=== PATIENT | female | born 1935 | race Caucasian/White ===

== ENCOUNTER 2016-12-26 16:03 | Inpatient (IN) ==
--- NOTE | 2016-12-26 16:28 | Emergency Department Report ---
Fall HPI - General Chief Complaint: Fall Stated Complaint: Fall/Head Inury Time Seen by Provider: 12/26/16 16:18 Source: patient, family (daughter Sophia) Mode of arrival: ambulatory Limitations: no limitations - History of Present Illness HPI Narrative: Chuyita is an 81 year old female who went to the [facility] today to be seen for fall injury with left hip/pelvis pain. She was advised to go to the ER as they do not have xray capabilities. Reports falling picking weeds at her home on 12/24 landing on her left side and slightly striking her head causing a small abrasion to the left side. Having difficulty getting around at home with her cane so has progressed to using an old walker she had on hand. Additionally reports recent loss of with his passing occurring 12/22 around midnight. This has caused her to delay coming in for medical evaluation. Chronically take Morphine and oxycodone prn for chronic back/neck pain. Does not take any blood thinners, denies warfarin, plavix, aspirin or similar. Denies neck pain from fall. Indicates asymptomatic prior to fall, just lost her balance as she was leaning over irregularly and took a tumble. PCP Sailaja. Onset (ago): day(s) (2) Fall from: standing Place fall occurred: home Loss of consciousness: none Prolonged down time: no Symptoms prior to fall: none Context: tripped/slipped Location of injury: pelvis Quality: sharp Associated symptoms (after fall): denies - Related Data Home Medications Medication Instructions Recorded Confirmed Morphine Sulfate [Morphine Sulfate 60 mg PO BID #0 tab 01/02/14 12/26/16 ER] Nitroglycerin [Nitrostat] 0.4 mg SL Q5MIN3 PRN #0 tab 01/02/14 12/26/16 Acetaminophen [Acetaminophen Extra 500 mg PO Q4H PRN 12/26/16 12/26/16 Strength] Oxycodone HCl [Oxycontin] 20 mg PO DAILY PRN 12/26/16 12/26/16 Allergies Allergy/AdvReac Type Severity Reaction Status Date / Time ibuprofen Allergy Verified 12/26/16 16:34 naproxen [From Aleve] Allergy Verified 12/26/16 16:34 Review of Systems All systems: reviewed and negative except as stated Constitutional: Denies: fever Cardiovascular: Denies: chest pain Respiratory: Denies: cough, dyspnea Gastrointestinal: Denies: abdominal pain, nausea, vomiting Musculoskeletal: Reports: other (left groin/hip pain). Denies: back pain Neurological: Reports: confusion (forgetful). Denies: headache, numbness Psychiatric: Reports: other (recent loss of spouse ) [facility] Patient Stated Medical History Hearing Loss Yes: Hearing Aids Osteoarthritis Yes - Social History Smoking status: Never smoker Substance use type: does not use Alcohol intake frequency: does not drink Housing: house Household members: none Current occupational status: retired Current residence: Apartment/Private Home Physical Exam - Limitations Limitations: no limitations - General General appearance: alert, in no apparent distress - Expanded Head Exam Head exam physical: Present: other (healing 1.5 cm laceration left parietal scalp) - Eye Eye exam: Present: normal appearance, PERRL, EOMI. Absent: scleral icterus, conjunctival injection - ENT ENT exam: Present: normal exam, normal oropharynx, mucous membranes moist - Neck Neck exam: Present: normal inspection, full ROM, trachea midline. Absent: tenderness - Chest Chest inspection: Present: normal inspection, symmetric chest wall rise. Absent : tenderness - Respiratory Respiratory exam: Present: normal lung sounds bilaterally - Cardiovascular Cardiovascular exam: Present: regular rate, normal rhythm - Abdominal Exam Abdominal exam: Present: soft. Absent: distention, tenderness - Extremities Exam Extremities exam: Present: normal inspection, tenderness (left groin/pelvis into left hip area tender), normal capillary refill - Skin Skin exam: Present: warm, dry, intact - Neurological Exam Neurological exam: Present: alert, oriented X3, other (forgetful) - Psychiatric Psychiatric exam: Present: normal affect, normal mood Course - Consultations Consultation #1: Jolie Time: 17:26 (admit) Consultation #2: lucho Time: 17:00 (admit to hosp and consult ortho) Vital Signs Temperature 98.1 F 12/26/16 16:05 Pulse Rate 93 12/26/16 16:05 Respiratory Rate 18 12/26/16 16:05 Blood Pressure 138/68 12/26/16 16:05 Pulse Oximetry 97 12/26/16 16:05 Temperature 98.1 F 12/26/16 16:05 Pulse Rate 93 12/26/16 16:05 Respiratory Rate 18 12/26/16 16:05 Blood Pressure 138/68 12/26/16 16:05 Pulse Oximetry 97 12/26/16 16:05 Fall - Radiology Data Attestation: I reviewed the patient's radiology results. impacted left subcapital neck fx CT head neg acute findings Critical Care Time Critical Care Time: No Disposition Clinical Impression: Fracture of hip, left, closed [place]: [place] [facility] [place] Condition: Stable Prescriptions: No Action Nitroglycerin [Nitrostat] 0.4 mg SL Q5MIN3 PRN #0 tab PRN Reason: Chest Pain Oxycodone HCl [Oxycontin] 20 mg PO DAILY PRN PRN Reason: Pain Acetaminophen [Acetaminophen Extra Strength] 500 mg PO Q4H PRN PRN Reason: Pain Morphine Sulfate [Morphine Sulfate ER] 60 mg PO BID #0 tab Referrals: Jareth Menard MD [Family Provider] - Time of Disposition: 17:32 - Seen By: midlevel
--- NOTE | 2016-12-26 17:10 | CT Scan Report ---
Indication: fall, head injury PROCEDURE: CT head/brain wo con: Encounter: Initial Comparison: None Technique: Axial CT images through the head were performed without contrast. Iterative Reconstruction dose reducing technique was utilized. FINDINGS: The ventricles are of normal size, shape, and configuration for the patient's age. There is no evidence of acute intracranial hemorrhage, midline displacement, or mass effect. There are scattered areas of low attenuation in the white matter which most likely represent changes of chronic microvascular ischemia. The CT attenuation of the brain parenchyma is otherwise normal within the cerebellum, brain stem, and cerebral hemispheres. The tympanic cavities and mastoid air cells are free of appreciable disease. There are no definite fractures of the skull base, calvarium, or visualized portion of the midface. IMPRESSION: No CT evidence of acute traumatic intracranial injury. .
--- NOTE | 2016-12-26 17:12 | XRay Report ---
Indication: fall, left hip/pelvis pain PROCEDURE: XR pelvis w/ 2 view LT hip: Encounter: Initial Comparison: None Findings: Mildly impacted fracture of the subcapital left femoral neck. Right total hip replacement. Spinal fusion hardware. Mild bony demineralization. No additional acute fracture or dislocation seen. Impression: Closed posttraumatic subcapital left femoral neck fracture. .
[2016-12-26] MEDS ORDERED: ACETAMINOPHEN 500 MG TABLET PO PRN (17:46)
[2016-12-26] MEDS ORDERED: ONDANSETRON 4 MG/2 ML INJECTION IVP PRN (17:47)
--- NOTE | 2016-12-26 17:52 | History & Physical Report ---
<Estrella Oneil V - Last Filed: 12/26/16 18:04> History of Present Illness Date: 12/26/16 Chief complaint: fall with left hip fracture HPI: Chuyita is a very pleasant 81-year-old female who unfortunately fell at her home on Thursday12/24/16. She reports that she was outside in the yard weeding and lost her balance, tripping, falling, landing on the left side. She did suffer a small abrasion to the left side of her head, however, was able to get herself up without any difficulties. She has been ambulating on her left leg for the past 2 days. Today she noted continued pain that felt more severe in nature in the left hip. This prompted her to present for further medical evaluation. She initially presented to [facility], however, was directed to [facility] emergency room for further evaluation. A CT scan of the head was obtained showing no intracranial abnormality. X-ray of the left hip did reveal a posttraumatic left femoral neck fracture. Given these findings the hospitalist services were contacted for medical evaluation at admission along with consultation placed to Dr. Adams for further orthopedic treatment. Chuyita is seen on initial examination while in the emergency room. She is alert , oriented and pleasant. Accompanied by her daughter. Unfortunately, she lost her earlier this week on 12/22/16 and is planning his for January 05. We did review her advanced directives and she does indicate she is a do not resuscitate. Review of Systems All systems: reviewed and no additional remarkable complaints except as stated - Gastrointestinal Gastrointestinal: Present: constipation (chronic) - Musculoskeletal Musculoskeletal: Present: as per HPI, back pain (chronic), neck pain (chronic) Musculoskeletal Comments: left hip pain [facility] Patient Stated Medical History Chronic cervical degenerative disc disease with stenosis Chronic lumbar sacral degenerative disc disease, postlaminectomy. Osteoporosis Chronic pain syndrome Diverticulosis. Overactive bladder with incontinence Chronic constipation Hearing Loss Osteoarthritis Surgical History: Right total hip arthroplasty-Dr Barrera (miguelangel) 01/18/15. Caudal - 08/2014. Lumbar laminectomy and fusion- 2001 ([place]) Dr Chauhan. Repeat L3- S1 fusion-12/2004 ([place]) Dr Hall. C3-C3 laminectomy -2003 ([place]) Dr Hall. Appendectomy Family History: Father-heart disease. Sister and maternal aunt with breast cancer Sister with Alzheimer's - Social History Smoking status: Never smoker Substance use type: does not use Alcohol intake frequency: does not drink Housing: house Current residence: Apartment/Private Home Social history: PCP Dr Menard Medications Home Medications Medication Instructions Recorded Confirmed Type Morphine Sulfate [Morphine Sulfate 60 mg PO BID #0 tab 01/02/14 12/26/16 History ER] Nitroglycerin [Nitrostat] 0.4 mg SL Q5MIN3 PRN #0 tab 01/02/14 12/26/16 History Acetaminophen [Acetaminophen Extra 500 mg PO Q4H PRN 12/26/16 12/26/16 History Strength] Oxycodone HCl [Oxycontin] 20 mg PO DAILY PRN 12/26/16 12/26/16 History Allergies Allergy/AdvReac Type Severity Reaction Status Date / Time ibuprofen Allergy Verified 12/26/16 16:34 naproxen [From Aleve] Allergy Verified 12/26/16 16:34 Exam Vital Signs: Temperature 98.1 F 12/26/16 16:05 Pulse Rate 93 12/26/16 16:05 Respiratory Rate 18 12/26/16 16:05 Blood Pressure 138/68 12/26/16 16:05 Pulse Oximetry 97 12/26/16 16:05 Oxygen Delivery Method Room Air Height: 1.47 m Weight: 45.2 kg - Constitutional Present: no acute distress - Routine HEENT Exam Head: Present: normocephalic Eye: Present: EOMI, PERRL ENT: Present: mucous membranes moist Comments: small abrasion to right lateral head - Routine Neck Exam Present: supple, full ROM - Routine Respiratory Exam Present: CTA bilaterally - Routine Cardiovascular Exam Present: RRR, S1, S2, no murmur - Routine Abdominal Exam Present: soft, normoactive bowel sounds - Routine Extremities Exam Comments: Left lateral hip tenderness - Routine Back/Spine/Pelvis Exam Back/Spine: Present: full ROM - Routine Skin Exam Present: intact, dry, warm - Routine Neurological Exam Present: alert, oriented X3, CN II-XII intact, moving all extremities - Routine Psychiatric Exam Present: normal affect, normal thought process Assessment and Plan (1) Fracture of hip, left, closed Current visit: Yes Status: Acute (2) Fall Current visit: Yes Status: Acute DVT Prophylaxis: SCD's Resuscitation Status: Do Not Resuscitate Assessment and Plan: Admit patient to inpatient status under the care of Dr. Mesa for fall with left hip fracture. Routine medical screening will be obtained including laboratory studies, CBC, BMP, urinalysis, INR. Will obtain EKG and chest x-ray. Did review all home medications. Did have discussion with patient. She is concerned about her chronic pain medication and acute withdrawal. If these are decreased. She routinely takes extended-release morphine 60 milligrams twice a day. She occasionally requires oxycodone 10 mg 1 during the day for breakthrough pain. May require further IV pain medications for control post- operatively Consultation will be placed to Dr. Adams for further orthopedic evaluation and treatment. Patient may have regular diet at this time. However, will make her nothing by mouth at midnight. Place Barton catheter to dependent drainage SCDs applied lower extremity for DVT prophylaxis In patient does wish to be a do not resuscitate and this orders written. Will discuss further orders and plan of care with attending, Dr. Dave At time of discharge medical care will return to primary care provider, Dr. Menard Hospital Course Summary Disclaimer: The visit summary below is not to be considered part of the above Progress Note. Hospital Course: 12/26/16 admission Admit patient to inpatient status under the care of Dr. Mesa for fall with left hip fracture. Routine medical screening will be obtained including laboratory studies, CBC, BMP, urinalysis, INR. Will obtain EKG and chest x-ray. Did review all home medications. Did have discussion with patient. She is concerned about her chronic pain medication and acute withdrawal. If these are decreased. She routinely takes extended-release morphine 60 milligrams twice a day. She occasionally requires oxycodone 10 mg 1 during the day for breakthrough pain. May require further IV pain medications for control post- operatively Consultation will be placed to Dr. Adams for further orthopedic evaluation and treatment. Patient may have regular diet at this time. However, will make her nothing by mouth at midnight. Place Barton catheter to dependent drainage SCDs applied lower extremity for DVT prophylaxis In patient does wish to be a do not resuscitate and this orders written. Will discuss further orders and plan of care with attending, Dr. Dave At time of discharge medical care will return to primary care provider, Dr. Menard <Loan Dave - Last Filed: 12/26/16 20:54> History of Present Illness Date: 12/26/16 [facility] Patient Stated Medical History Cerebrovascular Accident No Paralysis No Seizures No Syncope No Hearing Loss Yes: Hearing Aids Angina No Cardiac Arrhythmia No Congestive Heart Failure No Coronary Artery Disease No Heart Murmur No Hypertension No Myocardial Infarction No Valvular Heart Disease No Asthma No Bronchitis No Chronic Obstructive Pulmonary No Disease (COPD) Pneumonia No Pulmonary Edema No Pulmonary Embolism No Sleep Apnea No Tuberculosis No Other Respiratory No Diabetes Mellitus Type 1 No Diabetes Mellitus Type 2 No Osteoarthritis Yes Anesthesia Reactions No Blood Transfusions No Chemotherapy No Malignant Hyperthermia No Other No Depression No Now No Exam Vital Signs: Temperature 98.6 F 12/26/16 18:30 Pulse Rate 81 12/26/16 18:30 Respiratory Rate 16 12/26/16 18:30 Blood Pressure 133/77 12/26/16 18:30 Pulse Oximetry 93 12/26/16 18:30 Oxygen Delivery Method Room Air Height: 1.47 m Weight: 47.7 kg Results - Labs CBC & Chem 7: 12/26/16 18:37 12/26/16 18:37 Assessment and Plan (1) Fracture of hip, left, closed Problem details: Left IT fracture Current visit: Yes Status: Acute (2) Fall Current visit: Yes Status: Acute Assessment and Plan: Left intertrochanteric fracture, impacted Osteoporosis DJD/DDD Chronic pain syndrome Chronic constipation I have independently evaluated and examined this patient. I reviewed the chart, the patient's history, and the JEWELRY SETTER's documented findings as above. We discussed and formulated the assessment and plan as above with additions as below: History as described with patient sustaining a fall 2 days ago but able to get up and ambulate on her left leg. She also struck her head resulting in a small bump and bleeding but no neurological deficits. Patient denies history of coronary artery disease or stroke and has had no chest pain or focal neurological deficits in the recent past. She describes some occasional tingling in her fingertips or hands which is relieved by changing hand position or shaking her hands and is consistent with known cervical degenerative disc disease. She's had no recent respiratory infections or dyspnea. Blood pressure stable, afebrile Alert, fully oriented. Localized area of soft tissue swelling on the posterior parietal region. Neurological exam nonfocal. Left leg slightly shortened relative to the right but sensation intact and the patient is able to dorsiflex and plantarflex the left ankle without difficulty. Cardiac exam regular with normal S1 and S2. Breath sounds clear with good airflow. Portable chest x-ray reviewed by myself demonstrating no acute cardiopulmonary disease; cervical fusion incidentally noted. CT head reviewed by myself revealing no acute intracranial pathology although there is some chronic microvascular ischemic change present. Twelve-lead EKG reviewed-no acute ST-T wave changes. Laboratory data unremarkable. Patient stable for surgical stabilization of hip fracture-anticipated in a.m. IV/oral narcotics available for acute/chronic pain. Bowel regimen initiated. Records reviewed, discussed with ER provider, multiple x-rays reviewed as noted above, laboratory data reviewed. DO NOT RESUSCITATE order previously discussed by Estrella-order written. Hospital Course Summary Disclaimer: The visit summary below is not to be considered part of the above Progress Note.
--- NOTE | 2016-12-26 18:28 | Anesthesia Preoperative Report ---
Anesthesia Preoperative Record - Date and Time Date: 12/26/16 Preoperative Diagnosis: Hip Fx Proposed Procedure: Cannulated Screws Left Hip NPO Since Date: 12/26/16 NPO Since Time: 23:00 Allergies/Adverse Reactions: Allergies Allergy/AdvReac Type Severity Reaction Status Date / Time ibuprofen Allergy Verified 12/26/16 16:34 naproxen [From Aleve] Allergy Verified 12/26/16 16:34 - Vital Signs Vital Signs: Temperature 98.1 F 12/26/16 18:09 Pulse Rate 76 12/26/16 18:09 Respiratory Rate 18 12/26/16 18:09 Blood Pressure 127/60 12/26/16 18:09 Pulse Oximetry 97 12/26/16 18:09 - Medications Inpatient Medications: Current Medications Acetaminophen (Tylenol) 500 mg PO Q4H PRN PRN Reason: Pain Morphine Sulfate (Ms Contin) 60 mg PO BID BLANCA Ondansetron HCl (Zofran) 4 mg IVP Q6H PRN PRN Reason: Nausea &/or vomiting Oxycodone HCl (Oxycontin) 20 mg PO DAILY PRN Sodium Chloride (Iv Flush) 10 - 80 ml IVF PRN PRN PRN Reason: Flushing Home Medications: Home Medications Medication Instructions Recorded Confirmed Type Morphine Sulfate [Morphine Sulfate 60 mg PO BID #0 tab 01/02/14 12/26/16 History ER] Nitroglycerin [Nitrostat] 0.4 mg SL Q5MIN3 PRN #0 tab 01/02/14 12/26/16 History Acetaminophen [Acetaminophen Extra 500 mg PO Q4H PRN 12/26/16 12/26/16 History Strength] Oxycodone HCl [Oxycontin] 20 mg PO DAILY PRN 12/26/16 12/26/16 History Is Patient on Beta Sonali?: No - Medical History Respiratory: DENIES: Asthma, Bronchitis, Chronic Obstructive Pulmonary Disease (COPD), Dyspnea, Orthopnea, Pulmonary Embolism, Pneumonia, Upper Respiratory Infection, Pulmonary Edema, Sleep Apnea, Tuberculosis, Other Cardiovascular: DENIES: Angina, Arrhythmia, Congestive Heart Failure, Coronary Artery Disease , Heart Murmur, Hypertension, Myocardial Infarction, Valvular Heart Disease Neuro/Musculoskeletal: Reports: Back Problems Denies: Cerebrovascular Accident, Depression, Headaches, Loss of Consciousness, Muscle Weakness, Neuromuscular Disorder, Paralysis, Paresthesia, Syncope, Seizures Renal/Endocrine: DENIES: Diabetes Mellitus Type 1, Diabetes Mellitus Type 2, Thyroid Disease Other History: DENIES: Anesthesia Reactions, Now, Blood Transfusions, Chemotherapy , Cancer, Hemophilia, Malignant Hyperthermia, Sickle Cell Disease, Other - Surgical History Musculoskeletal Surgery/Tx: Reports: Total Hip Replacement (R) Anesthesia Reactions: None Hx Family Anesthesia Reaction: No History of Motion Sickness: No - Social History Smoking Status: Never smoker Substance Use Type: does not use Alcohol Intake Frequency: does not drink - Pertinent Findings EKG Rhythm: Normal Sinus Rhythm - Physical Exam Respiratory Exam: Present: lungs clear, bilateral breath sounds equal Cardiovascular Exam: Present: regular rate and rhythm, no murmur - Airway Assessment Mallampati Score: II TMD: 3 Fingerbreadths Neck Extension: poor (hx of cervical fusion) Overall Assessment: may be difficult intubation - ASA ASA Score: 2 - Plan Anesthesia: General TIVA - Discussion Discussion: Discussed risks/options/alternatives of anesthesia and questions answered. Patient consents. Nursing pain assessment noted. Present for Discussion: family member Attestation Statement: Prior to the delivery of any anesthetic medication, I examined the patient, developed the plan, obtained the patient's consent and discussed the risk and benefits of the procedure with the patient/guardian. - Additional Information Seen by Anesthesia: Yes
[2016-12-26 18:59] VITALS: BMI 21.9
[2016-12-26] MEDS ORDERED: NITROGLYCERIN 0.4 MG SUBLINGUAL TABLET SL PRN (19:06)
[2016-12-26] MEDS: NS 1,000 ML IV SCH (21:49)
[2016-12-27] MEDS: SENNA + DOCUSATE TABLET PO SCH ×3 (01:08→21:20)
[2016-12-27] MEDS ORDERED: NS 500 ML IV SCH ×2 (03:45)
[2016-12-27] MEDS ORDERED: NS 500 ML IV ONE ×2 (03:53→05:01)
[2016-12-27] MEDS: HYDROMORPHONE 2 MG/ML INJECTION IVP PRN ×6 (04:47→23:57)
[2016-12-27] MEDS: NS 1,000 ML IV SCH ×3 (04:49→23:43)
[2016-12-27] MEDS ORDERED: LIDOCAINE 1% (10mg/ml) 30ml SDV INJ ONE (06:33)
[2016-12-27] MEDS ORDERED: BUPIVACAINE 0.25% (2.5mg/ml) PF 30ml INJECTION ONE (06:33)
[2016-12-27] MEDS ORDERED: BUPIV 0.25% 30ml/LIDO 1% 30ml MIXTURE IR ONE (06:48)
--- NOTE | 2016-12-27 07:17 | Orthopedic Consult Note ---
Orthopedic Consultation HPI - Consultation Info Consult Date: 12/27/16 Attending Physician: Loan Dave MD Consult Reason: fracture (Left subcapital valgus impacted femoral neck fracture) Review of Systems - Constitutional Constitutional: Absent: chills, fever(s), night sweats - Cardiovascular Cardiovascular: Absent: chest pain, palpitations - Respiratory Respiratory: Absent: cough, dyspnea - Gastrointestinal Gastrointestinal: Absent: abdominal pain, nausea, vomiting - Genitourinary Genitourinary Female: Absent: dysuria - Musculoskeletal Musculoskeletal: Present: as per HPI - Integumentary/Breasts Integumentary: Absent: lesions, rash - Neurological Neurological: Absent: numbness, tingling PFS Patient Stated Medical History Cerebrovascular Accident No Paralysis No Seizures No Syncope No Hearing Loss Yes: Hearing Aids Angina No Cardiac Arrhythmia No Congestive Heart Failure No Coronary Artery Disease No Heart Murmur No Hypertension No Myocardial Infarction No Valvular Heart Disease No Asthma No Bronchitis No Chronic Obstructive Pulmonary No Disease (COPD) Pneumonia No Pulmonary Edema No Pulmonary Embolism No Sleep Apnea No Tuberculosis No Other Respiratory No Diabetes Mellitus Type 1 No Diabetes Mellitus Type 2 No Osteoarthritis Yes Anesthesia Reactions No Blood Transfusions No Chemotherapy No Malignant Hyperthermia No Other No Depression No Now No Surgical History: Right total hip arthroplasty-Dr Barrera ([place]) 01/18/15. Caudal - 08/2014. Lumbar laminectomy and fusion- 2001 ([place]) Dr Chauhan. Repeat L3- S1 fusion-12/2004 ([place]) Dr Hall. C3-C3 laminectomy -2003 ([place]) Dr Hall. Appendectomy - Social History Smoking status: Never smoker Medications Home Medications Medication Instructions Recorded Confirmed Type Morphine Sulfate [Morphine Sulfate 60 mg PO BID #0 tab 01/02/14 12/26/16 History ER] Nitroglycerin [Nitrostat] 0.4 mg SL Q5MIN3 PRN #0 tab 01/02/14 12/26/16 History Acetaminophen [Acetaminophen Extra 500 mg PO Q4H PRN 12/26/16 12/26/16 History Strength] Oxycodone HCl [Oxycontin] 20 mg PO DAILY PRN 12/26/16 12/26/16 History Allergies Allergy/AdvReac Type Severity Reaction Status Date / Time ibuprofen Allergy Verified 12/26/16 16:34 naproxen [From Aleve] Allergy Verified 12/26/16 16:34 Orthopedic Exam Vital signs: Temperature 98.1 F 12/26/16 23:46 Pulse Rate 70 12/26/16 23:46 Respiratory Rate 18 12/26/16 23:46 Blood Pressure 109/62 12/26/16 23:46 Pulse Oximetry 90 12/26/16 23:46 Oxygen Delivery Method Room Air - Constitutional General Appearance: Present: alert, no acute distress, well developed, well nourished - Respiratory Exam Present: non-labored - Cardiovascular Exam Present: pedal pulses intact - Integumentary Exam Present: pink, warm, dry - Neurological Exam Present: intact to light touch, no deficits - Psychiatric Exam Present: alert, normal affect - Labs Result Diagrams: 12/27/16 04:24 12/27/16 04:24 Abnormal lab results 12/26/16 12/26/16 12/26/16 Range/Units 18:30 18:37 18:37 RBC 3.97 L (4.00-5.20) M/MM3 MPV 8.9 L (9.4-12.4) UM3 Neut % (Auto) 67.8 H (33-66) % Lymph % (Auto) 22.2 L (23-45) % Eos % (Auto) (0-4) % Carbon Dioxide 31 H (22-30) MEQ/L Anion Gap 3 L (5-15) MEQ/L Creatinine (0.7-1.2) MG/DL Glucose 111 H (65-110) MG/DL Calcium (8.4-10.2) MG/DL Magnesium (1.6-2.3) MG/DL Urine Protein 1+ A (NEGATIVE) Urine Bacteria Trace H (NEGATIVE) 12/27/16 12/27/16 Range/Units 04:24 04:24 RBC 3.81 L (4.00-5.20) M/MM3 MPV 9.1 L (9.4-12.4) UM3 Neut % (Auto) (33-66) % Lymph % (Auto) (23-45) % Eos % (Auto) 5.7 H (0-4) % Carbon Dioxide (22-30) MEQ/L Anion Gap (5-15) MEQ/L Creatinine 0.6 L (0.7-1.2) MG/DL Glucose (65-110) MG/DL Calcium 8.2 L (8.4-10.2) MG/DL Magnesium 2.4 H (1.6-2.3) MG/DL Urine Protein (NEGATIVE) Urine Bacteria (NEGATIVE) H & H 12/26/16 12/27/16 Range/Units 18:37 04:24 Hgb 12.9 12.3 (12-16) GM/DL Hct 39.4 37.9 (36-46) % Coagulation 12/26/16 Range/Units 18:37 INR 1.19 (0.99-1.21) Impression and Recommendation (1) Subcapital fracture of neck of left femur Current visit: Yes Qualifiers: Encounter type: initial encounter Fracture type: closed Qualified Code(s) : S72.012A - Unspecified intracapsular fracture of left femur, initial encounter for closed fracture Status: Acute I reviewed the diagnosis with the patient and her daughter. I recommended internal fixation with 3 cannulated screws. I reviewed the risks and benefits of the surgery including the possible need for further surgery if this fixation type fails. They agree with this plan and surgery will proceed this morning. Hospital Course Summary Disclaimer: The visit summary below is not to be considered part of the above Progress Note. Hospital Course: 12/26/16 admission Admit patient to inpatient status under the care of Dr. Mesa for fall with left hip fracture. Routine medical screening will be obtained including laboratory studies, CBC, BMP, urinalysis, INR. Will obtain EKG and chest x-ray. Did review all home medications. Did have discussion with patient. She is concerned about her chronic pain medication and acute withdrawal. If these are decreased. She routinely takes extended-release morphine 60 milligrams twice a day. She occasionally requires oxycodone 10 mg 1 during the day for breakthrough pain. May require further IV pain medications for control post- operatively Consultation will be placed to Dr. Adams for further orthopedic evaluation and treatment. Patient may have regular diet at this time. However, will make her nothing by mouth at midnight. Place Barton catheter to dependent drainage SCDs applied lower extremity for DVT prophylaxis In patient does wish to be a do not resuscitate and this orders written. Will discuss further orders and plan of care with attending, Dr. Dave At time of discharge medical care will return to primary care provider, Dr. Menard
[2016-12-27] MEDS: LR 1,000 ML IV SCH (07:20)
[2016-12-27] MEDS ORDERED: CEFAZOLIN 1 G INJECTION IVP ONE (07:24)
[2016-12-27] MEDS ORDERED: PROPOFOL 500 MG/50 ML VIAL IV ONE (07:25)
[2016-12-27] MEDS ORDERED: FentaNYL 100 MCG/2 ML INJECTION ONE (07:26)
[2016-12-27] MEDS ORDERED: KETAMINE 500 MG/10 ML INJECTION ONE (07:27)
[2016-12-27] MEDS ORDERED: ONDANSETRON 4 MG/2 ML INJECTION IVP PRN ×2 (08:23→08:37)
--- NOTE | 2016-12-27 08:24 | Anesthesia Postoperative Note ---
- Date and Time Date: 12/27/16 Time: 08:24 - Status Patient Participated in Evaluation: Patient Participated in Person Vital Signs: Temperature 98.0 F 12/27/16 07:28 Pulse Rate 76 12/27/16 07:28 Respiratory Rate 20 12/27/16 07:28 Blood Pressure 116/65 12/27/16 07:28 Pulse Oximetry 92 12/27/16 07:28 Oxygen Delivery Method Room Air Respiratory Function: Airway Patent, Regular Respirations Cardiovascular Function: Regular Pulse EKG Rhythm: Normal Sinus Rhythm Unable to Assess Pain Due to: Patient Sleeping Hydration: IV Infusing Complications During Recover: None Apparent - Follow-Up Instructions Instructions: Per Surgeon
--- NOTE | 2016-12-27 08:27 | Operative Note ---
- Procedure Date of Admission: 12/27/16 Side: left Preoperative Diagnosis: other (subcapital valgus impacted femoral neck fracture) Postoperative Diagnosis: Same as preoperative diagnosis. Operation: other (internal fixation of left hip fracture) Surgeon: Isaiah Adams MD Complications: None. Anesthesia: General TIVA Estimated Blood Loss: See Anesthesia Record. Fluids: Please see Anesthesia Record. Description of Procedure: Mrs. Duran and her left hip were identified and marked in her hospital room bed she was then brought back to the operating suite and placed supine on the fracture table. She was placed under general anesthesia. Both feet were placed in well-padded traction boots. The left leg was placed into a neutral position the right leg was placed into extension. The left lower extremity was prepped and draped in my normal sterile fashion. Timeout was performed. Fluoroscopy was used throughout the case. A 3 cm incision was made laterally. Sharp dissection was carried through the IT band. I then placed 3 guide pins into the proximal femur. The first place inferiorly and centrally the second 2 were placed superiorly and one anteriorly and one posteriorly. Multiple fluoroscopic images including live fluoroscopy was used to confirm good hardware placement. Lateral cortex over through all 3 guidepins was overdrilled. All 3 guide pins were then measured and 6.5 mm cannulated screws were placed over the guidepins. The first was anterior screw with a washer. The second was a posterior screw with washer. The third was anterior screw without a washer. All 3 achieved good bite. Again multiple fluoroscopic images ensured good hardware placement. The wound was thoroughly irrigated with normal saline and then closed with 2-0 Vicryl and Dermabond. A sterile dressing was placed and the drapes removed. She is allowed to awake from anesthesia and taken to the recovery room in the care of anesthesia. She tolerated the procedure well and there were no complications.
[2016-12-27] MEDS ORDERED: SENNA + DOCUSATE TABLET PO PRN (08:37)
[2016-12-27] MEDS ORDERED: ACETAMINOPHEN 325 MG TABLET PO PRN (08:37)
[2016-12-27] MEDS ORDERED: ENOXAPARIN 40 MG/0.4 ML INJECTION SQ SCH (08:37)
[2016-12-27] MEDS ORDERED: CEFAZOLIN 1 G in NS 100 ML IV SCH (09:00)
[2016-12-27] MEDS ORDERED: Oxycodone CR 20 MG TABLET PO PRN (09:00)
[2016-12-27] MEDS ORDERED: MORPHINE SULFATE 10 MG/ML VIAL IVP ONE (09:13)
[2016-12-27] MEDS: HYDROCODONE/APAP 7.5 MG/325 MG TABLET PO PRN ×2 (10:29→18:12)
[2016-12-27] MEDS: CEFAZOLIN 1 G in NS 100 ML IV SCH ×3 (14:58→23:46)
--- NOTE | 2016-12-27 17:23 | Progress Note ---
Subjective: Mrs. Duran was seen shortly after returning from the operating room this morning. She reported that hip pain was tolerable although head much more pain overnight than she anticipated. She complains of constipation but had no complaints of dyspnea, chest pain, or nausea. She was tolerating liquids and pudding at the time of assessment. Objective Vital signs: Temperature 97.5 F 12/27/16 16:00 Pulse Rate 63 12/27/16 16:00 Respiratory Rate 16 12/27/16 17:03 Blood Pressure 98/55 12/27/16 16:00 Pulse Oximetry 99 12/27/16 17:03 Oxygen Delivery Method Room Air Oxygen Flow Rate 1.5 EXAM General-NAD, alert, talkative HEENT-conjunctiva clear, conjugate gaze, sclera anicteric Lungs-respirations nonlabored, good airflow, breath sounds clear anteriorly Cardiac-regular rhythm, S1-S2 Abd-soft, nontender, active bowel sounds Ext-without edema, symmetric leg length Neuro-sensation intact bilateral feet, intact dorsiflexion/plantar flexion bilaterally Psych-calm, cooperative - Rhythm: Normal Sinus Rhythm Results - Labs CBC & Chem 7: 12/27/16 04:24 12/27/16 04:24 Assessment and Plan (1) Fracture of hip, left, closed Problem details: Left IT fracture Current visit: Yes Status: Acute 12/27/16 17:22 Cannulated screws 3 12/27/16; Dr. Adams (2) Fall Current visit: Yes Status: Acute DVT Prophylaxis: Lovenox Resuscitation Status: Do Not Resuscitate Assessment and Plan: Left intertrochanteric fracture, impacted; ORIF 12/27/16, 3 guided pins Osteoporosis DJD/DDD Chronic pain syndrome Chronic constipation Surgical stabilization of fracture earlier today, PT/OT, IRU evaluation ordered. IV/oral narcotics available for acute/chronic pain. Bowel regimen initiated. Continue bowel regimen due to chronic narcotic use. Urine output low, continue IV fluids. Hemodynamically stable in the immediate postoperative time. Nursing advised me daughter expressed concern about some underlying confusion- will discuss with family later and obtained JUAN MIGUEL although with acute illness suboptimal time for formal evaluation. DO NOT RESUSCITATE Discussed with nursing, high-risk medications in use, surgical films reviewed. Sepsis Assessment - Evaluation Sepsis screening result: No Definite Risk Hospital Course Summary Disclaimer: The visit summary below is not to be considered part of the above Progress Note. Hospital Course: 12/26/16 admission Admit patient to inpatient status under the care of Dr. Mesa for fall with left hip fracture. Routine medical screening will be obtained including laboratory studies, CBC, BMP, urinalysis, INR. Will obtain EKG and chest x-ray. Did review all home medications. Did have discussion with patient. She is concerned about her chronic pain medication and acute withdrawal. If these are decreased. She routinely takes extended-release morphine 60 milligrams twice a day. She occasionally requires oxycodone 10 mg 1 during the day for breakthrough pain. May require further IV pain medications for control post- operatively Consultation will be placed to Dr. Adams for further orthopedic evaluation and treatment. Patient may have regular diet at this time. However, will make her nothing by mouth at midnight. Place Barton catheter to dependent drainage SCDs applied lower extremity for DVT prophylaxis In patient does wish to be a do not resuscitate and this orders written. Will discuss further orders and plan of care with attending, Dr. Dave At time of discharge medical care will return to primary care provider, Dr. Menard 12/27/16 17:32 Surgical stabilization of fracture earlier today, PT/OT, IRU evaluation ordered. IV/oral narcotics available for acute/chronic pain. Bowel regimen initiated. Continue bowel regimen due to chronic narcotic use. Urine output low, continue IV fluids. Hemodynamically stable in the immediate postoperative time. Nursing advised me daughter expressed concern about some underlying confusion- will discuss with family later and obtained JUAN MIGUEL although with acute illness suboptimal time for formal evaluation.
[2016-12-27] MEDS: ENOXAPARIN 40 MG/0.4 ML INJECTION SQ SCH (21:20)
[2016-12-28] MEDS: POLYETHYL GLYCOL 3350 17gm PACKET PO SCH (09:17)
[2016-12-28] MEDS: SENNA + DOCUSATE TABLET PO SCH ×2 (09:18→20:38)
--- NOTE | 2016-12-28 10:24 | XRay Report ---
Indication: left hip fracture PROCEDURE: XR chest 1V: Encounter: Initial Comparison: None FINDINGS: The lungs are clear. There is no abnormal airspace opacity, pleural effusion or pneumothorax identified. The heart size, pulmonary vasculature and mediastinum are within normal limits. Cervical spine fusion hardware. IMPRESSION: No acute cardiopulmonary abnormality. .
--- NOTE | 2016-12-28 10:56 | Remote Fluorsocopy Report ---
Indication: LT HIP FX PROCEDURE: RF hip LT 2 view: Encounter: Initial Comparison: Pelvis radiograph dated December 26, 2016 Findings: Five fluoroscopic spot images are submitted for interpretation. Images show internal fixation of the left femoral neck fracture with placement of three partially threaded cannulated screws across the femoral head and neck. Alignment is stable. Impression: Fluoroscopy as above. Fluoroscopy time is 103.3 seconds. Fluoroscopy dose is 1490 mRad. .
--- NOTE | 2016-12-28 12:33 | Orthopedic Progress Note ---
Date: Subjective/Severity of Illness: Mrs Duran is doing well. She is in good spirits this AM. Pain is well controlled. She has walked into the hallway. Her ribs and head wound are sore but not too bad. Orthopedic Objective PO Vital signs: Temperature 99.1 F 12/28/16 09:07 Pulse Rate 85 12/28/16 09:07 Respiratory Rate 18 12/28/16 09:07 Blood Pressure 130/61 12/28/16 09:07 Pulse Oximetry 92 12/28/16 09:07 Oxygen Delivery Method Room Air Oxygen Flow Rate 2 Height and Weight: Height 4 ft 10 in Weight 104 lb 15.04 oz Body Mass Index 21.9 - Constitutional General Appearance: Present: alert, no acute distress, well developed, well nourished - Respiratory Exam Present: non-labored - Cardiovascular Exam Present: pedal pulses intact - Surgical Site Incision: dressing intact, bloody drainage present (Very small amount.) - Integumentary Exam Present: pink, warm, dry - Neurological Exam Present: no deficits - Psychiatric Exam Present: alert, normal affect - Labs Result Diagrams: 12/28/16 04:47 12/28/16 04:47 Abnormal lab results 12/28/16 12/28/16 Range/Units 04:47 04:47 RBC 3.57 L (4.00-5.20) M/MM3 Hgb 11.6 L (12-16) GM/DL Hct 35.7 L (36-46) % Plt Count 126 L (130-400) T/MM3 MPV 8.8 L (9.4-12.4) UM3 [place] % (Auto) 9.4 H (0-9.0) % Chloride 110 H (98-107) MEQ/L Anion Gap 3 L (5-15) MEQ/L Creatinine 0.6 L (0.7-1.2) MG/DL Calcium 8.1 L (8.4-10.2) MG/DL H & H 12/26/16 12/27/16 12/28/16 Range/Units 18:37 04:24 04:47 Hgb 12.9 12.3 11.6 L (12-16) GM/DL Hct 39.4 37.9 35.7 L (36-46) % Coagulation 12/26/16 Range/Units 18:37 INR 1.19 (0.99-1.21) Orthopedic Assessment and Plan (1) Subcapital fracture of neck of left femur Status: Acute Qualifiers: Encounter type: initial encounter Fracture type: closed Qualified Code(s) : S72.012A - Unspecified intracapsular fracture of left femur, initial encounter for closed fracture Assessment and Plan: S/P cannulated screw fixation left hip by DR Adams on 12/27/16. Pt is on Lovenox and using SCDs. Labs stable. Mobilize with PT / OT. Pt diied last week and they are making arrangements. CM for discharge planning. Hospital Course Summary Disclaimer: The visit summary below is not to be considered part of the above Progress Note. Hospital Course: 12/26/16 admission Admit patient to inpatient status under the care of Dr. Mesa for fall with left hip fracture. Routine medical screening will be obtained including laboratory studies, CBC, BMP, urinalysis, INR. Will obtain EKG and chest x-ray. Did review all home medications. Did have discussion with patient. She is concerned about her chronic pain medication and acute withdrawal. If these are decreased. She routinely takes extended-release morphine 60 milligrams twice a day. She occasionally requires oxycodone 10 mg 1 during the day for breakthrough pain. May require further IV pain medications for control post- operatively Consultation will be placed to Dr. Adams for further orthopedic evaluation and treatment. Patient may have regular diet at this time. However, will make her nothing by mouth at midnight. Place Barton catheter to dependent drainage SCDs applied lower extremity for DVT prophylaxis In patient does wish to be a do not resuscitate and this orders written. Will discuss further orders and plan of care with attending, Dr. Dave At time of discharge medical care will return to primary care provider, Dr. Menard 12/27/16 17:32 Surgical stabilization of fracture earlier today, PT/OT, IRU evaluation ordered. IV/oral narcotics available for acute/chronic pain. Bowel regimen initiated. Continue bowel regimen due to chronic narcotic use. Urine output low, continue IV fluids. Hemodynamically stable in the immediate postoperative time. Nursing advised me daughter expressed concern about some underlying confusion- will discuss with family later and obtained JUAN MIGUEL although with acute illness suboptimal time for formal evaluation.
[2016-12-28] MEDS: HYDROCODONE/APAP 7.5 MG/325 MG TABLET PO PRN ×2 (13:02→23:29)
[2016-12-28] MEDS ORDERED: SALINE FLUSH 10ml SYRINGE IVF PRN (13:07)
[2016-12-28] MEDS: LR 1,000 ML IV SCH (13:26)
[2016-12-28] MEDS: NS 1,000 ML IV SCH (13:26)
[2016-12-28] MEDS: SALINE FLUSH 10ml SYRINGE IVF PRN ×2 (14:42→20:38)
[2016-12-28] MEDS ORDERED: BISACODYL 10 MG SUPPOSITORY RECTALLY PRN (19:48)
--- NOTE | 2016-12-28 19:50 | Progress Note ---
Subjective: Mrs. Duran was in good spirits today. She reported minimal pain and that she's been ambulating with assistance. Nursing reported that she walked to the end of the ho and back earlier today. Patient denies dyspnea, chest pain, nausea, or fever. Barton catheter was removed earlier today and she's been able to void without difficulty since that time. Patient has a poor appetite but is eating. Objective Vital signs: Temperature 99.3 F 12/28/16 16:44 Pulse Rate 66 12/28/16 16:44 Respiratory Rate 16 12/28/16 16:44 Blood Pressure 105/69 12/28/16 16:44 Pulse Oximetry 91 12/28/16 16:44 Oxygen Delivery Method Room Air Oxygen Flow Rate 2 EXAM General-NAD, alert, cooperative HEENT-conjunctiva clear, sclera anicteric Lungs-respirations nonlabored, good airflow, breath sounds clear Cardiac-regular rhythm, S1-S2 Abd-soft, nontender, bowel sounds present Ext-without edema Neuro-moving all extremities symmetrically, sensation intact bilateral lower extremities Psych-pleasant, talkative, calm - Weight: 47.6 kg Results - Labs CBC & Chem 7: 12/28/16 04:47 12/28/16 04:47 Assessment and Plan (1) Fracture of hip, left, closed Problem details: Left IT fracture Current visit: Yes Status: Acute 12/27/16 17:22 Cannulated screws 3 12/27/16; Dr. Adams (2) Fall Current visit: Yes Status: Acute DVT Prophylaxis: Lovenox Resuscitation Status: Do Not Resuscitate Assessment and Plan: Left intertrochanteric fracture, impacted; ORIF 12/27/16, 3 guided pins Osteoporosis DJD/DDD Chronic pain syndrome Chronic constipation Surgical stabilization of fracture yesterday, PT/OT, IRU evaluation ordered. Anticipate patient may be able to discharge tomorrow if discharge plans coordinated. IV/oral narcotics available for acute/chronic pain. Has not required IV narcotics today. Continue bowel regimen due to chronic narcotic use. Dulcolax suppositories added to her regimen if needed. Urine output improved, taking by mouth well, IV fluids discontinued. JUAN MIGUEL evaluation tomorrow (family request) although acute illness suboptimal time for formal evaluation of possible memory loss. DO NOT RESUSCITATE Discussed with nursing. Sepsis Assessment - Evaluation Sepsis screening result: No Definite Risk Hospital Course Summary Disclaimer: The visit summary below is not to be considered part of the above Progress Note. Hospital Course: 12/26/16 admission Admit patient to inpatient status under the care of Dr. Mesa for fall with left hip fracture. Routine medical screening will be obtained including laboratory studies, CBC, BMP, urinalysis, INR. Will obtain EKG and chest x-ray. Did review all home medications. Did have discussion with patient. She is concerned about her chronic pain medication and acute withdrawal. If these are decreased. She routinely takes extended-release morphine 60 milligrams twice a day. She occasionally requires oxycodone 10 mg 1 during the day for breakthrough pain. May require further IV pain medications for control post- operatively Consultation will be placed to Dr. Adams for further orthopedic evaluation and treatment. Patient may have regular diet at this time. However, will make her nothing by mouth at midnight. Place Barton catheter to dependent drainage SCDs applied lower extremity for DVT prophylaxis In patient does wish to be a do not resuscitate and this orders written. Will discuss further orders and plan of care with attending, Dr. Dave At time of discharge medical care will return to primary care provider, Dr. Menard 12/27/16 17:32 Surgical stabilization of fracture earlier today, PT/OT, IRU evaluation ordered. IV/oral narcotics available for acute/chronic pain. Bowel regimen initiated. Continue bowel regimen due to chronic narcotic use. Urine output low, continue IV fluids. Hemodynamically stable in the immediate postoperative time. Nursing advised me daughter expressed concern about some underlying confusion- will discuss with family later and obtained JUAN MIGUEL although with acute illness suboptimal time for formal evaluation. 12/28/16 19:50 Surgical stabilization of fracture yesterday, PT/OT, IRU evaluation ordered. Anticipate patient may be able to discharge tomorrow if discharge plans coordinated. IV/oral narcotics available for acute/chronic pain. Has not required IV narcotics today. Continue bowel regimen due to chronic narcotic use. Dulcolax suppositories added to her regimen if needed. Urine output improved, taking by mouth well, IV fluids discontinued. JUAN MIGUEL evaluation tomorrow (family request) although acute illness suboptimal time for formal evaluation of possible memory loss.
[2016-12-28] MEDS: ENOXAPARIN 40 MG/0.4 ML INJECTION SQ SCH (20:39)
[2016-12-29] MEDS: HYDROCODONE/APAP 7.5 MG/325 MG TABLET PO PRN ×2 (06:30→15:23)
--- NOTE | 2016-12-29 07:50 | Orthopedic Progress Note ---
Date: Subjective/Severity of Illness: Doing well. Slept fairly well. Not painful this AM. Labs stable. Orthopedic Objective PO Vital signs: Temperature 97.5 F 12/29/16 07:21 Pulse Rate 60 12/29/16 07:21 Respiratory Rate 16 12/29/16 07:21 Blood Pressure 125/67 12/29/16 07:21 Pulse Oximetry 94 12/29/16 07:21 Oxygen Delivery Method Room Air Oxygen Flow Rate 2 Height and Weight: Height 4 ft 10 in Weight 104 lb 15.04 oz Body Mass Index 21.9 - Constitutional General Appearance: Present: alert, no acute distress, well developed, well nourished - Respiratory Exam Present: non-labored - Cardiovascular Exam Present: pedal pulses intact - Surgical Site Incision: dressing intact, bloody drainage present (Very small amount.) - Integumentary Exam Present: pink, warm, dry - Neurological Exam Present: no deficits - Psychiatric Exam Present: alert, normal affect - Labs Result Diagrams: 12/29/16 04:27 12/29/16 04:27 Abnormal lab results 12/29/16 12/29/16 Range/Units 04:27 04:27 RBC 3.85 L (4.00-5.20) M/MM3 MPV 8.9 L (9.4-12.4) UM3 Mcclain % (Auto) 10.4 H (0-9.0) % Creatinine 0.6 L (0.7-1.2) MG/DL Calcium 8.3 L (8.4-10.2) MG/DL H & H 12/26/16 12/27/16 12/28/16 Range/Units 18:37 04:24 04:47 Hgb 12.9 12.3 11.6 L (12-16) GM/DL Hct 39.4 37.9 35.7 L (36-46) % 12/29/16 Range/Units 04:27 Hgb 12.4 (12-16) GM/DL Hct 38.2 (36-46) % Coagulation 12/26/16 Range/Units 18:37 INR 1.19 (0.99-1.21) Orthopedic Assessment and Plan (1) Subcapital fracture of neck of left femur Status: Acute Qualifiers: Encounter type: initial encounter Fracture type: closed Qualified Code(s) : S72.012A - Unspecified intracapsular fracture of left femur, initial encounter for closed fracture Assessment and Plan: Lovenox x 30 days. Mobilize with PT / OT WBAT CM for discharge planning. Hospital Course Summary Disclaimer: The visit summary below is not to be considered part of the above Progress Note. Hospital Course: 12/26/16 admission Admit patient to inpatient status under the care of Dr. Mesa for fall with left hip fracture. Routine medical screening will be obtained including laboratory studies, CBC, BMP, urinalysis, INR. Will obtain EKG and chest x-ray. Did review all home medications. Did have discussion with patient. She is concerned about her chronic pain medication and acute withdrawal. If these are decreased. She routinely takes extended-release morphine 60 milligrams twice a day. She occasionally requires oxycodone 10 mg 1 during the day for breakthrough pain. May require further IV pain medications for control post- operatively Consultation will be placed to Dr. Adams for further orthopedic evaluation and treatment. Patient may have regular diet at this time. However, will make her nothing by mouth at midnight. Place Barton catheter to dependent drainage SCDs applied lower extremity for DVT prophylaxis In patient does wish to be a do not resuscitate and this orders written. Will discuss further orders and plan of care with attending, Dr. Dave At time of discharge medical care will return to primary care provider, Dr. Menard 12/27/16 17:32 Surgical stabilization of fracture earlier today, PT/OT, IRU evaluation ordered. IV/oral narcotics available for acute/chronic pain. Bowel regimen initiated. Continue bowel regimen due to chronic narcotic use. Urine output low, continue IV fluids. Hemodynamically stable in the immediate postoperative time. Nursing advised me daughter expressed concern about some underlying confusion- will discuss with family later and obtained JUAN MIGUEL although with acute illness suboptimal time for formal evaluation. 12/28/16 19:50 Surgical stabilization of fracture yesterday, PT/OT, IRU evaluation ordered. Anticipate patient may be able to discharge tomorrow if discharge plans coordinated. IV/oral narcotics available for acute/chronic pain. Has not required IV narcotics today. Continue bowel regimen due to chronic narcotic use. Dulcolax suppositories added to her regimen if needed. Urine output improved, taking by mouth well, IV fluids discontinued. JUAN MIGUEL evaluation tomorrow (family request) although acute illness suboptimal time for formal evaluation of possible memory loss.
[2016-12-29] MEDS: POLYETHYL GLYCOL 3350 17gm PACKET PO SCH (08:18)
[2016-12-29] MEDS: SENNA + DOCUSATE TABLET PO SCH ×2 (08:18→20:13)
--- NOTE | 2016-12-29 15:33 | Progress Note ---
<Estrella Oneil V - Last Filed: 12/29/16 15:29> Subjective: Chuyita is seen this morning. She is alert and pleasant. She reports of having some back pain as she is due for her chronic pain medications. Nursing states that she has been up and ambulated with assistance. She is voiding without difficulty. Bowels have not yet moved. Vital signs remains stable. Objective Vital signs: Temperature 97.5 F 12/29/16 12:50 Pulse Rate 72 12/29/16 12:50 Respiratory Rate 14 12/29/16 12:50 Blood Pressure 123/70 12/29/16 12:50 Pulse Oximetry 94 12/29/16 07:21 Oxygen Delivery Method Room Air Oxygen Flow Rate 2 Height: 1.47 m Weight: 47.627 kg Body Mass Index: 21.9 - Constitutional Present: no acute distress - Routine HEENT Exam Head: Present: normocephalic Eye: Present: EOMI, PERRL ENT: Present: mucous membranes moist - Routine Respiratory Exam Present: CTA bilaterally - Routine Cardiovascular Exam Present: RRR, S1, S2 - Routine Abdominal Exam Present: soft, normoactive bowel sounds - Routine Extremities Exam Present: tenderness (left hip- post op) - Routine Back/Spine/Pelvis Exam Back/Spine: Present: full ROM - Routine Skin Exam Present: intact, dry, warm - Routine Neurological Exam Present: alert, oriented X3, CN II-XII intact Results - Labs CBC & Chem 7: 12/29/16 04:27 12/29/16 04:27 Assessment and Plan (1) Fracture of hip, left, closed Problem details: Left IT fracture Current visit: Yes Status: Acute 12/27/16 17:22 Cannulated screws 3 12/27/16; Dr. Adams (2) Fall Current visit: Yes Status: Acute Assessment and Plan: 12/29/16 Left intertrochanteric fracture, impacted; ORIF 12/27/16, 3 guided pins Osteoporosis DJD/DDD Chronic pain syndrome Chronic constipation Screen placed to IRU however she did not meet all criteria or needs Continue with PT/OT for ongoing postop strengthening. Continue with chronic pain medications including long-acting morphine, times changed to 0600,1800 like at home. Will change to Percocet 7.5mg PO every 4 hours as needed for break through pain Continue bowel regimen due to chronic narcotic use. Dulcolax suppositories added to her regimen if needed. Lovenox for 30 days postop Labs remain stable CM working on placement for SNU Sepsis Assessment - Evaluation Sepsis screening result: No Definite Risk Hospital Course Summary Disclaimer: The visit summary below is not to be considered part of the above Progress Note. Hospital Course: 12/26/16 admission Admit patient to inpatient status under the care of Dr. Mesa for fall with left hip fracture. Routine medical screening will be obtained including laboratory studies, CBC, BMP, urinalysis, INR. Will obtain EKG and chest x-ray. Did review all home medications. Did have discussion with patient. She is concerned about her chronic pain medication and acute withdrawal. If these are decreased. She routinely takes extended-release morphine 60 milligrams twice a day. She occasionally requires oxycodone 10 mg 1 during the day for breakthrough pain. May require further IV pain medications for control post- operatively Consultation will be placed to Dr. Adams for further orthopedic evaluation and treatment. Patient may have regular diet at this time. However, will make her nothing by mouth at midnight. Place Barton catheter to dependent drainage SCDs applied lower extremity for DVT prophylaxis In patient does wish to be a do not resuscitate and this orders written. Will discuss further orders and plan of care with attending, Dr. Dave At time of discharge medical care will return to primary care provider, Dr. Menard 12/27/16 17:32 Surgical stabilization of fracture earlier today, PT/OT, IRU evaluation ordered. IV/oral narcotics available for acute/chronic pain. Bowel regimen initiated. Continue bowel regimen due to chronic narcotic use. Urine output low, continue IV fluids. Hemodynamically stable in the immediate postoperative time. Nursing advised me daughter expressed concern about some underlying confusion- will discuss with family later and obtained JUAN MIGUEL although with acute illness suboptimal time for formal evaluation. 12/28/16 19:50 Surgical stabilization of fracture yesterday, PT/OT, IRU evaluation ordered. Anticipate patient may be able to discharge tomorrow if discharge plans coordinated. IV/oral narcotics available for acute/chronic pain. Has not required IV narcotics today. Continue bowel regimen due to chronic narcotic use. Dulcolax suppositories added to her regimen if needed. Urine output improved, taking by mouth well, IV fluids discontinued. JUAN MIGUEL evaluation tomorrow (family request) although acute illness suboptimal time for formal evaluation of possible memory loss. 12/29/16 Left intertrochanteric fracture, impacted; ORIF 12/27/16, 3 guided pins Osteoporosis DJD/DDD Chronic pain syndrome Chronic constipation Screen placed to IRU however she did not meet all criteria or needs Continue with PT/OT for ongoing postop strengthening. Continue with chronic pain medications including long-acting morphine, times changed to 0600,1800 like at home. Will change to Percocet 7.5mg PO every 4 hours as needed for break through pain Continue bowel regimen due to chronic narcotic use. Dulcolax suppositories added to her regimen if needed. Lovenox for 30 days postop Labs remain stable CM working on placement for SNU <Gregory Caldwell - Last Filed: 12/29/16 18:30> Objective Vital signs: Temperature 98.4 F 12/29/16 16:00 Pulse Rate 71 12/29/16 16:00 Respiratory Rate 18 12/29/16 16:00 Blood Pressure 134/70 12/29/16 16:00 Pulse Oximetry 97 12/29/16 16:00 Oxygen Delivery Method Room Air Oxygen Flow Rate 2 Results - Labs CBC & Chem 7: 12/29/16 04:27 12/29/16 04:27 Assessment and Plan (1) Fracture of hip, left, closed Problem details: Left IT fracture Current visit: Yes Status: Acute (2) Fall Current visit: Yes Status: Acute DVT Prophylaxis: SCD's, Lovenox Resuscitation Status: Do Not Resuscitate Assessment and Plan: Have independently interviewed and examined pt. Chart reviewed. Case discussed with CM and my APPLIANCE TESTER. Care plan developed with my supervision; agree with above. Doing well this evening. Feels pain controlled well. Notes pain to back, but chronic in nature and not increased. Tolerating therapy. Breathing well. No ab pain or nausea. Lungs: clear bilaterally, no distress on RA. CV: regular AB: soft nt/nd +BS MSE: awake alert appropriate Plan: Continue with supportive post op care. Encourage continuation of therapy. Pt declined for IRU-CM working on skilled care. Continue with pain control. Continue bowel medications. Emotional support given to pt regarding the loss of her (he was my pt during his last hospitalization here). Hospital Course Summary Disclaimer: The visit summary below is not to be considered part of the above Progress Note.
[2016-12-29] MEDS: ENOXAPARIN 40 MG/0.4 ML INJECTION SQ SCH (20:13)
[2016-12-29] MEDS: OXYCODONE/APAP 7.5 MG/325 MG TABLET PO PRN (21:55)
[2016-12-30 08:20] VITALS: BP 126/70; PULSE 65; RESP 18; TEMP 98.2; O2SAT 92
--- NOTE | 2016-12-30 08:55 | Discharge Instructions ---
Discharge Plan - Med Rec/Dispo Referrals/Follow Up: Jacky Adams MD [Physician] - (please schedule follow up apt for 2 weeks) Jareth Menard MD [Family Provider] - (please schedule a follow-up appointment for 1 week) Prescriptions: New Bisacodyl Supp [Dulcolax] 10 mg RECTALLY DAILY PRN supp PRN Reason: Constipation Enoxaparin Sodium [Lovenox] 40 mg SQ Q24H #27 syringe Milk of Magnesia [Mom] 30 ml PO DAILY PRN udc PRN Reason: Constipation Oxycodone/APAP 7.5/325 [Percocet 7.5/325] 1 tab PO Q4H PRN #30 tablet PRN Reason: Pain Senna + Docusate [Senna Plus Tablet] 2 tab PO BID tablet Acetaminophen [Tylenol] 650 mg PO Q4H PRN tablet PRN Reason: Pain Morphine Sulfate *Sr* [Ms Contin] 60 mg PO Q12H #20 tablet PEG 3350 17gm PACKET [Miralax] 17 gm PO DAILY packet Continue Nitroglycerin [Nitrostat] 0.4 mg SL Q5MIN3 PRN #0 tab PRN Reason: Chest Pain Discontinued Oxycodone HCl [Oxycontin] 20 mg PO DAILY PRN PRN Reason: Pain Morphine Sulfate [Morphine Sulfate ER] 60 mg PO BID #0 tab No Action Acetaminophen [Acetaminophen Extra Strength] 500 mg PO Q4H PRN PRN Reason: Pain Discharge Instructions/Outpatient Orders: Final Provider Discharge Instructions Location: Determined By Patient - Disposition 03 To [facility] [place] [facility] [place]
--- NOTE | 2016-12-30 09:21 | Extended Care Facility Orders ---
Admission Orders Admit to:: [facility] Allergies/Adverse Reactions: Allergies ibuprofen Allergy (Verified 12/26/16 16:34) naproxen [From Aleve] Allergy (Verified 12/26/16 16:34) Admitting Diagnosis: Hip Fx Admitting Physician: Loan Dave MD Attending Physician: Loan Dave MD Code Status: Do Not Resuscitate Anticiapted Length of Stay: 30 days or less Rehab Potential: good Rehab Prognosis: good Diet: 12/27/16 Lunch Regular Diet [DIET] Diet Modifications: Evaluations/Treatment: PT, OT [facility] Certification: I certify that SNF services are required to be given on an Inpatient basis because of the patients need for nursing home care on a continuing basis for the condition(s) for which he/she received inpatient hospital services prior to his/her transfer to the SNF. SNF inpatient care is necessary for the following reasons Indication for [facility]: Other (PT,OT) - Additional Information Referrals: Jareth Menard MD [Family Provider] - (please schedule a follow-up appointment for 1 week) Jacky Adams MD [Physician] - (please schedule follow up apt for 2 weeks)
--- NOTE | 2016-12-30 09:24 | Discharge Summary ---
<Estrella Oneil V - Last Filed: 12/30/16 09:21> Discharge Information Date of admission: 12/26/16 18:23 Anticipated date of discharge: 12/30/16 Attending Physician: Loan Dave MD Primary care physician: Jareth Menard MD Consults: 12/27/16 IRU Screening [Inpatient Rehab Screening] [CONS] Routine 12/27/16 16:55 Dietary Consult [CONS] Routine Comment: Reason For Exam: PATIENT'S DAUGHTER CONCERNED ABOUT NUTRITION. 12/29/16 IRU Screening [Inpatient Rehab Screening] [CONS] Routine 12/29/16 13:59 Physician Consult [CONS] Routine Consulting Provider: Shashi Tucker Reason For Exam: continue care Ordering Provider has Notified Mercury Purifier: Yes - Discharge Diagnosis (1) Fracture of hip, left, closed Problem Details: Left IT fracture Status: Acute (2) Fall Status: Acute - Procedures Procedures: 12/27/16- Internal fixation of left hip fracture- Dr Adams - Laboratory Labs: 12/29/16 04:27 12/29/16 04:27 - Microbiology None - Radiology Radiology: 12/26/16-chest x-ray-no acute cardiopulmonary findings 12/26/16-CT scan head, no acute intracranial trauma or abnormality 12/26/16- hip x-ray-close posttraumatic subcapital left femoral neck fracture - Pathology None History of Present Illness HPI: Chuyita is a very pleasant 81-year-old female who unfortunately fell at her home on Thursday12/24/16. She reports that she was outside in the yard weeding and lost her balance, tripping, falling, landing on the left side. She did suffer a small abrasion to the left side of her head, however, was able to get herself up without any difficulties. She has been ambulating on her left leg for the past 2 days. Today she noted continued pain that felt more severe in nature in the left hip. This prompted her to present for further medical evaluation. She initially presented to [facility], however, was directed to [facility] emergency room for further evaluation. A CT scan of the head was obtained showing no intracranial abnormality. X-ray of the left hip did reveal a posttraumatic left femoral neck fracture. Given these findings the hospitalist services were contacted for medical evaluation at admission along with consultation placed to Dr. Adams for further orthopedic treatment. Chuyita is seen on initial examination while in the emergency room. She is alert , oriented and pleasant. Accompanied by her daughter. Unfortunately, she lost her earlier this week on 12/22/16 and is planning his for January 05. We did review her advanced directives and she does indicate she is a do not resuscitate. Objective Vital signs: Temperature 98.2 F 12/30/16 08:17 Pulse Rate 65 12/30/16 08:17 Respiratory Rate 18 12/30/16 08:17 Blood Pressure 126/70 12/30/16 08:17 Pulse Oximetry 92 12/30/16 08:17 Oxygen Delivery Method Room Air Oxygen Flow Rate 2 Weight: 47.7 kg - Constitutional Present: no acute distress - Routine HEENT Exam Head: Present: normocephalic, atraumatic Eye: Present: EOMI, PERRL ENT: Present: mucous membranes moist - Routine Respiratory Exam Present: CTA bilaterally - Routine Cardiovascular Exam Present: RRR, S1, S2 - Routine Abdominal Exam Present: soft, normoactive bowel sounds - Routine Extremities Exam Comments: Mild tenderness to left hip - Routine Back/Spine/Pelvis Exam Back/Spine: Present: full ROM - Routine Skin Exam Present: intact, dry, warm - Routine Neurological Exam Present: alert, oriented X3, CN II-XII intact - Routine Psychiatric Exam Present: normal affect, normal thought process Hospital Course This is a general summary of the patient's hospital course. For more details refer to the complete medical record. Hospital course: 12/26/16 admission Admit patient to inpatient status under the care of Dr. Msea for fall with left hip fracture. Routine medical screening will be obtained including laboratory studies, CBC, BMP, urinalysis, INR. Will obtain EKG and chest x-ray. Did review all home medications. Did have discussion with patient. She is concerned about her chronic pain medication and acute withdrawal. If these are decreased. She routinely takes extended-release morphine 60 milligrams twice a day. She occasionally requires oxycodone 10 mg 1 during the day for breakthrough pain. May require further IV pain medications for control post- operatively Consultation will be placed to Dr. Adams for further orthopedic evaluation and treatment. Patient may have regular diet at this time. However, will make her nothing by mouth at midnight. Place Barton catheter to dependent drainage SCDs applied lower extremity for DVT prophylaxis In patient does wish to be a do not resuscitate and this orders written. Will discuss further orders and plan of care with attending, Dr. Dave At time of discharge medical care will return to primary care provider, Dr. Menard 12/27/16 17:32 Surgical stabilization of fracture earlier today, PT/OT, IRU evaluation ordered. IV/oral narcotics available for acute/chronic pain. Bowel regimen initiated. Continue bowel regimen due to chronic narcotic use. Urine output low, continue IV fluids. Hemodynamically stable in the immediate postoperative time. Nursing advised me daughter expressed concern about some underlying confusion- will discuss with family later and obtained JUAN MIGUEL although with acute illness suboptimal time for formal evaluation. 12/28/16 19:50 Surgical stabilization of fracture yesterday, PT/OT, IRU evaluation ordered. Anticipate patient may be able to discharge tomorrow if discharge plans coordinated. IV/oral narcotics available for acute/chronic pain. Has not required IV narcotics today. Continue bowel regimen due to chronic narcotic use. Dulcolax suppositories added to her regimen if needed. Urine output improved, taking by mouth well, IV fluids discontinued. JUAN MIGUEL evaluation tomorrow (family request) although acute illness suboptimal time for formal evaluation of possible memory loss. 12/29/16 Left intertrochanteric fracture, impacted; ORIF 12/27/16, 3 guided pins Osteoporosis DJD/DDD Chronic pain syndrome Chronic constipation Screen placed to IRU however she did not meet all criteria or needs Continue with PT/OT for ongoing postop strengthening. Continue with chronic pain medications including long-acting morphine, times changed to 0600,1800 like at home. Will change to Percocet 7.5mg PO every 4 hours as needed for break through pain Continue bowel regimen due to chronic narcotic use. Dulcolax suppositories added to her regimen if needed. Lovenox for 30 days postop Labs remain stable CM working on placement for SNU 12/30/16- Discharge Chuyita is seen and examined today. Overall she is feeling well with minimal postoperative pain. She is planning for discharge for group home at [facility] today. She will require additional 27 days of Lovenox with an end date of January 26. She will continue on her routine chronic pain medications of MS Contin twice a day. Will also send her with Percocet 7.5 to utilize every 4 hours as needed for breakthrough pain. Encourage aggressive postoperative bowel motivation including senna plus, and MiraLAX as patient does have a history of constipation. Recommend acutely utilizing Dulcolax suppositories as needed. Laboratory studies reviewed on day of discharge. She will follow-up with Dr. Adams, as well as her primary care provider, Dr. Menard for outpatient monitoring. Time spent with patient: discharge greater than 30 minutes DVT Prophylaxis: Lovenox Discharge Plan - Med Rec/Dispo Referrals/Follow Up: Jareth Menard MD [Family Provider] - (please schedule a follow-up appointment for 1 week) Jacky Adams MD [Physician] - (please schedule follow up apt for 2 weeks) Prescriptions: New Bisacodyl Supp [Dulcolax] 10 mg RECTALLY DAILY PRN supp PRN Reason: Constipation Enoxaparin Sodium [Lovenox] 40 mg SQ Q24H #27 syringe Milk of Magnesia [Mom] 30 ml PO DAILY PRN udc PRN Reason: Constipation Oxycodone/APAP 7.5/325 [Percocet 7.5/325] 1 tab PO Q4H PRN #30 tablet PRN Reason: Pain Senna + Docusate [Senna Plus Tablet] 2 tab PO BID tablet Acetaminophen [Tylenol] 650 mg PO Q4H PRN tablet PRN Reason: Pain Morphine Sulfate *Sr* [Ms Contin] 60 mg PO Q12H #20 tablet PEG 3350 17gm PACKET [Miralax] 17 gm PO DAILY packet Continue Nitroglycerin [Nitrostat] 0.4 mg SL Q5MIN3 PRN #0 tab PRN Reason: Chest Pain Discontinued Oxycodone HCl [Oxycontin] 20 mg PO DAILY PRN PRN Reason: Pain Morphine Sulfate [Morphine Sulfate ER] 60 mg PO BID #0 tab No Action Acetaminophen [Acetaminophen Extra Strength] 500 mg PO Q4H PRN PRN Reason: Pain Discharge Instructions/Outpatient Orders: Final Provider Discharge Instructions Location: Determined By Patient - Disposition 03 To U Not [facility] ([facility]) <Gregory Caldwell - Last Filed: 12/30/16 09:45> Discharge Information Date of admission: 12/26/16 18:23 Attending Physician: Loan Dave MD Primary care physician: Jareth Menard MD Consults: 12/27/16 IRU Screening [Inpatient Rehab Screening] [CONS] Routine 12/27/16 16:55 Dietary Consult [CONS] Routine Comment: Reason For Exam: PATIENT'S DAUGHTER CONCERNED ABOUT NUTRITION. 12/29/16 IRU Screening [Inpatient Rehab Screening] [CONS] Routine 12/29/16 13:59 Physician Consult [CONS] Routine Consulting Provider: Shashi Tucker Reason For Exam: continue care Ordering Provider has Notified Mercury Purifier: Yes - Discharge Diagnosis (1) Fracture of hip, left, closed Problem Details: Left IT fracture Status: Acute (2) Fall Status: Acute - Laboratory Labs: 12/29/16 04:27 12/29/16 04:27 Objective Vital signs: Temperature 98.2 F 12/30/16 08:17 Pulse Rate 65 12/30/16 08:17 Respiratory Rate 18 12/30/16 08:17 Blood Pressure 126/70 12/30/16 08:17 Pulse Oximetry 92 12/30/16 08:17 Oxygen Delivery Method Room Air Oxygen Flow Rate 2 Hospital Course This is a general summary of the patient's hospital course. For more details refer to the complete medical record. Discharge Plan - Med Rec/Dispo - Attestation Attestation Narrative: 12/30/16 09:41 Have independently interviewed and examined pt. Chart reviewed. Case discussed with my [employer]BOARDING SPECIALIST. Care plan developed with my supervision; agree with above. Doing well today. Pain stable. Tolerating therapy. Breathing well without SOA, cough or congestion. Using IS routinely. No chest pain. Appetite stable. Bowels moving well. Urinating well. No f/c. Lungs: clear bilaterally. No distress on RA. CV: regular AB: soft nt/nd MSE: awake alert appropriate. Plan: Will d/c to skilled care at [facility]. Encourage continuation of therapy to maximize functional status with goal of pt to return to prior independent living. Continue Lovenox for 27 days for DVT prevention-order written. Continue IS. F/U with PCP and ortho. See orders for details.
[2016-12-30] MEDS: SENNA + DOCUSATE TABLET PO SCH (10:40)
[2016-12-30] MEDS: POLYETHYL GLYCOL 3350 17gm PACKET PO SCH (10:40)
[2016-12-30] MEDS: OXYCODONE/APAP 7.5 MG/325 MG TABLET PO PRN (11:39)
== END 2016-12-30 11:50 | DRG 482 ==
LOC: ED 16:03 → SRG 18:00
PROVIDERS: ADMIT Internal Medicine; ATTEND Internal Medicine